=== PATIENT | female | born 1970 | race Caucasian/White ===

== ENCOUNTER 2017-07-10 17:35 | Emergency (ER) | payer SELFPAY ==
[~2017-07-10] VITALS: Ht 160 cm; Wt 95.0 kg
[2017-07-10 17:41] VITALS: BP 141/68; PULSE 98; RESP 16; TEMP 98.5; O2SAT 98
[2017-07-10] MEDS ORDERED: ABIL2TAB2 PO (17:51)
[2017-07-10] MEDS ORDERED: BUPR100CR PO (17:51)
[2017-07-10] MEDS ORDERED: AUGM875T3 PO (18:14)
--- NOTE | 2017-07-10 18:14 | PD ---
HPI Chief Complaint: Bite or Sting Time Seen by Provider: 18:09 Travel History International Travel<30 days: No Contact w/Intl Traveler<30days: No Traveled to known affect area: No History of Present Illness HPI 46-year-old female presents to the emergency room for evaluation of a dog bite to the right pinky finger that occurred just prior to arrival. Patient was bit by her own dog. States the dog was upset because she was trying to get the medication and it grabbed her finger. Rather than waiting for it on H, she wrapped her finger out of it now worsening of the laceration. She wrapped it and came straight to the emergency room. Dog is up-to-date on rabies vaccinations. Patient is up-to-date on tetanus. PFSH Past Medical History Anxiety: Yes Depression: Yes Diminished Hearing: No Immunizations Current: Yes Tetanus Vaccination: < 5 Years Influenza Vaccination: Yes ?: Not LMP: AFTAB Menopausal: Yes Past Surgical History Surgical History: No Previous Surgery Social History Alcohol Use: Yes (social) Tobacco Use: No Substance Use: No Allergies-Medications (Allergen,Severity, Reaction): Coded Allergies: No Known Allergies (Unverified , 07/10/17) Reported Meds & Prescriptions Reported Meds & Active Scripts Active Augmentin (Amoxicillin-Clavulanate) 875-125 Mg Tab 1 Tab PO BID Reported Wellbutrin SR 12 HR (Bupropion HCl) 100 Mg Tab 100 Mg PO Q12HR Abilify (Aripiprazole) 2 Mg Tab 2 Mg PO DAILY Review of Systems Except as stated in HPI: all other systems reviewed are Neg Physical Exam Narrative GENERAL: Well-nourished, well-developed female in no acute distress. Afebrile. Ambulatory. SKIN: Focused skin assessment warm/dry. There is a 1 cm deep, well approximated laceration to the right fifth, distal finger. Bleeding mildly. HEAD: Normocephalic. EYES: No scleral icterus. No injection or drainage. NECK: Supple, trachea midline. No JVD or lymphadenopathy. CARDIOVASCULAR: Regular rate and rhythm without murmurs, gallops, or rubs. RESPIRATORY: Breath sounds equal bilaterally. No accessory muscle use. MUSCULOSKELETAL: No cyanosis, or edema. Full range of motion of the hand. Data Data Last Documented VS Vital Signs Date Time Temp Pulse Resp B/P Pulse Ox O2 Delivery O2 Flow Rate FiO2 07/10/17 17:41 98.5 98 16 141/68 98 Orders Amoxicil-Clavulanate (Augmentin) (07/10/17 18:15) Wound Care (07/10/17 18:07) MDM Medical Decision Making Medical Screen Exam Complete: Yes Emergency Medical Condition: Yes Medical Record Reviewed: Yes Differential Diagnosis Dog bite, rabies, cellulitis, folliculitis Narrative Course 46-year-old female presents to the emergency room for evaluation of dog bite to her right fifth finger that occurred just prior to arrival. Patient was bit by her own dog. She and her daughter up-to-date on tetanus and rabies, respectively. Physical exam reveals a 1 cm laceration on the right distal fifth phalanx. It is deep but well approximated. Wound was thoroughly cleansed and Betadine. Patient was given first dose of Augmentin the emergency room. Because the location of wound, it was repaired with loose Steri-Strips rather than sutures. Patient was discharged with prescription for Augmentin and wound care instructions. Told to follow-up with her primary care physician or return for worsening symptoms. She understands and agrees to plan. Diagnosis Primary Impression: Dog bite of finger Qualified Code: S61.259A - Dog bite of finger, initial encounter Referrals: Primary Care Physician Patient Instructions: Animal Bite (ED), General Instructions Additional Instructions: Rest and drink plenty of fluids. Augmentin as directed, until gone. Apply ice to the affected area for 20 minutes at a time, as needed for pain and swelling. Follow-up with a primary care physician. Return to the emergency room for worsening symptoms. Med/Other Pt SpecificInfo: Prescription(s) given Scripts Amoxicillin-Clavulanate (Augmentin)875-125 Mg Tab1 Tab PO BID #14 TAB Ref 0 Prov:Abel Galvan MD 07/10/17 Disposition: 01 DISCHARGE HOME Condition: Stable Kendra Galindo Jul 10, 2017 18:14
[2017-07-10] MEDS ORDERED: AMOXICILLIN/CLAVULANATE K 875 MG TAB PO ONE (18:15)
== END 2017-07-10 18:30 | disposition home or self-care (01) ==
LOC: PHEFT 17:35
DX: S61.256A Open bite of right little finger without damage to nail, initial encounter (principal); Z86.59 Personal history of other mental and behavioral disorders; W54.0XXA Bitten by dog, initial encounter
CPT/HCPCS: 99283